=== PATIENT | female | born 1960 | race African-American/Black ===

== ENCOUNTER → 2020-03-22 | Outpatient (CLI) | payer OTHER ==
--- NOTE | 2020-03-22 10:05 | RAD ---
2 views lumbar spine without comparison for back pain, disability determination, no known injury. FINDINGS: There is no fracture or acute osseous or alignment abnormality identified. There is grade 1 anterolisthesis of L4 and L5, with mild narrowing at L4-5 intervertebral disc space, and bulky facet arthrosis at L4-5, and L5-S1. There is a mild rotoscoliosis of the thoracolumbar spine. IMPRESSION: 1. No acute osseous or alignment abnormality of lumbar spine. 2. Rotoscoliosis with degenerative changes of the lower lumbar spine resulting in grade 1 anterolisthesis of L4 on L5. Electronically signed by: Loc Hernández MD (03/22/2020 10:02 AM) [id number]
== END | disposition home or self-care (01) ==
LOC: RAD 09:33
PROVIDERS: ATTEND Family Medicine
DX: M47.817 Spondylosis without myelopathy or radiculopathy, lumbosacral region (principal); M48.061 Spinal stenosis, lumbar region without neurogenic claudication; M43.16 Spondylolisthesis, lumbar region; M41.85 Other forms of scoliosis, thoracolumbar region
CPT/HCPCS: 72100